=== PATIENT | female | born 1945 | race Caucasian/White ===

== ENCOUNTER 2021-09-10 09:04 | Day surgery (SDC) | payer MEDICARE ==
[~2021-09-10] VITALS: Ht 152.4 cm; Wt 56.0 kg
[~2021-09-10 09:04] MED LIST: ACET1TAB55 PO; ATOR1TAB21 PO; BRIM1OPD OU; CALC12502; COUM1TAB17; FENO54TA2 PO; LATANOPROST; LIDOCAINE 1% SDV 5ML VIAL As Ordered ONE; MIRO OD; MULTCAP PO; NEUR300C PO; OFLOXACIN 0.3 % (OCUFLOX) OPTH SOL 5ML OS SCH; PERC5TAB8; PHENYLEPHRINE 2.5% OPHTH SOL 2ML OS SCH; PREDOPD OD; PRIL20CA; PROPARACAINE 0.5% OPHTH SOL 15ML OS ONE; REST0.05 OD; THERGRAN; TIMO0.2529 OD; TRAV04OPD OU; TROPICAMIDE 1% OPHTH SOLN 2ML OS SCH; VITMTA PO; ZOLO50TA PO
[2021-09-10] MEDS ORDERED: fentaNYL 100 MCG/2 ML INJECTION As Ordered ONE (09:59)
[2021-09-10] MEDS ORDERED: MIDAZOLAM INJ 2MG/2ML VIAL (J2250 PER 1MG) As Ordered ONE (09:59)
[2021-09-10] MEDS ORDERED: TRYPAN BLUE 0.06 % 2.25 ML OPHTH SYR (VISIONBLUE) As Ordered ONE (10:03)
[2021-09-10] MEDS ORDERED: INSULIN LISPRO (NovoLOG) PER UNIT SC PRN (11:10)
[2021-09-10 11:28] VITALS: BP 143/79
== END 2021-09-10 12:03 | disposition home or self-care (01) ==
LOC: M SDC 09:04
PROVIDERS: ATTEND Ophthalmology
DX: H25.12 Age-related nuclear cataract, left eye (principal); G43.909 Migraine, unspecified, not intractable, without status migrainosus; K21.9 Gastro-esophageal reflux disease without esophagitis; E78.5 Hyperlipidemia, unspecified; M81.0 Age-related osteoporosis without current pathological fracture; Z79.52 Long term (current) use of systemic steroids; Z79.899 Other long term (current) drug therapy; R51.9 Headache, unspecified; F32.A Depression, unspecified
CPT/HCPCS: 66984; J2250; J3010; V2632